=== PATIENT | male | born 1995 | race Hispanic/Latino ===

== ENCOUNTER 2021-11-08 10:54 | Emergency (ER) | payer OTHER ==
[~2021-11-08] VITALS: Ht 160 cm; Wt 77.1 kg
[2021-11-08 10:57] VITALS: BP 142/80
[2021-11-08] MEDS ORDERED: SOLU-MEDROL 125MG VIAL IM ONE (12:30)
[2021-11-08] MEDS ORDERED: BUDESONIDE 0.5 MG/2 ML INH IH SCH (12:30)
[2021-11-08] MEDS ORDERED: IPRATROPIUM/ALBUTEROL SULFATE 3 ML SOLUTION IH ONE (12:30)
[2021-11-08] MEDS ORDERED: GUAIFENESIN-DM 200/20 MG 10 ML PO ONE (12:30)
[2021-11-08] MEDS ORDERED: MONT10TA21 PO (12:51)
[2021-11-08] MEDS ORDERED: D-ME1POW16 PO (12:51)
[2021-11-08] MEDS ORDERED: PRED20TA3 PO (12:51)
[2021-11-08] MEDS ORDERED: ALBU8.5H8 IH (12:51)
== END 2021-11-08 13:09 | disposition home or self-care (01) ==
LOC: EDH 10:54
DX: J45.901 Unspecified asthma with (acute) exacerbation (principal); J06.9 Acute upper respiratory infection, unspecified; Z20.822 Contact with and (suspected) exposure to COVID-19; Z71.6 Tobacco abuse counseling; Z79.51 Long term (current) use of inhaled steroids; Z79.52 Long term (current) use of systemic steroids
CPT/HCPCS: 99284; 71045; 87635; 87804 ×2; 96372; 94640 ×2; C9803; J2930